=== PATIENT | female | born 1960 | race Caucasian/White ===

== ENCOUNTER 2019-10-31 09:13 | Day surgery (SDC) | payer BC ==
[2019-10-28 10:21] LABS: BASOPHILS # (AUTO) 0.05 x10^3/uL (0-0.1); BASOPHILS % (AUTO) 1 % (0-1); EOSINOPHILS # (AUTO) 0.35 x10^3/uL (0-0.4); EOSINOPHILS % (AUTO) 4 % (1-7); LYMPHOCYTES # (AUTO) 2.27 x10^3/uL (1-3.4); LYMPHOCYTES % (AUTO) 25 % (22-44); MD NO; MEAN CORPUSCULAR HEMOGLOBIN 29.2 pg (27.0-34.8); MEAN CORPUSCULAR HGB CONC 33.5 g/dL (32.4-35.8); MEAN CORPUSCULAR VOLUME 87.1 fL (80-100); MEAN PLATELET VOLUME 9.1 fL (7.4-10.4); MONOCYTES # (AUTO) 0.71 x10^3/uL (0.2-0.8); MONOCYTES % (AUTO) 8 % (2-9); NEUTROPHILS # (AUTO) 5.74 x10^3/uL (1.8-6.8); NEUTROPHILS % (AUTO) 63 % (42-75); PLATELET COUNT 321 x10^3/uL (130-400); RED BLOOD COUNT 4.98 x10^6/uL (3.82-5.3); RED CELL DISTRIBUTION WIDTH 14.3 % (9.6-15.2)
[2019-10-28 10:29] LABS: INTERNATIONAL NORMALIZED RATIO 0.9 (0.93-1.1); PROTHROMBIN TIME 9.5 Seconds (9.6-11.5)
[2019-10-28 10:30] LABS: MICROSCOPIC AUTO
[2019-10-28 10:30] LABS: ALANINE AMINOTRANSFERASE 46 U/L (12-78); ALBUMIN 3.4 g/dL (3.4-5.0); ANION GAP 3 mmol/L (5-15); CALCIUM 8.6 mg/dL (8.5-10.1); CHLORIDE 110 mmol/L (98-107); CREATININE 0.85 mg/dL (0.55-1.02)
[2019-10-28 10:33] LABS: ALKALINE PHOSPHATASE 55 U/L (45-117); BILIRUBIN,TOTAL 0.2 mg/dL (0.2-1.0); TOTAL PROTEIN 7.1 g/dL (6.4-8.2)
[~2019-10-31] VITALS: Ht 157.5 cm; Wt 97.1 kg
[~2019-10-31 09:13] MED LIST: ALBU2.5V INH; ATOR40TA78 PO; BUPIVACAINE/PF 0.25% ONE; CETI10CA PO; CYAN1TAB29 PO; CYCL-259 PO; FAMO-79 PO; FLUT1BLS INH; IPRA4AER INH; METF500T27 PO; MULT-658 PO; MULT-94 PO; MV-M1TAB16 PO; lorazepam PO; magnesium oxide PO
[2019-10-31] MEDS ORDERED: GABAPENTIN 300 MG CAPSULE PO STA (09:43)
[2019-10-31] MEDS ORDERED: ACETAMINOPHEN 500 MG TABLET PO STA (09:43)
[2019-10-31 09:46] VITALS: BP 144/88
[2019-10-31] MEDS ORDERED: CEFOTETAN PMX 2GM/50ML 50 ML IV ONE (10:00)
[2019-10-31] MEDS ORDERED: LIDOCAINE-MPF 1%, 2ML INFIL ONE (10:00)
[2019-10-31] MEDS ORDERED: SCOPOLAMINE 1MG PATCH TD STA (10:10)
[2019-10-31] MEDS: LACTATED RINGERS 1,000 ML IV SCH ×2 (10:17→17:35)
[2019-10-31 11:28] LABS: MICROSCOPIC NOT IND
[2019-10-31] MEDS ORDERED: FENTANYL PF 250 MCG/5ML ONE (14:57)
[2019-10-31] MEDS ORDERED: MIDAZOLAM 1 MG/ML, 2ML ONE (14:57)
[2019-10-31] MEDS ORDERED: ROCURONIUM 10MG/ML,5ML ONE (14:58)
[2019-10-31] MEDS ORDERED: PROPOFOL 10 MG/ML, 20ML ONE (14:58)
[2019-10-31] MEDS ORDERED: ONDANSETRON 2MG/ML, 2ML ONE (14:58)
[2019-10-31] MEDS ORDERED: GLYCOPYRROLATE 0.2MG/1ML, 5ML ONE (14:58)
[2019-10-31] MEDS ORDERED: DEXAMETHASONE 4 MG/ML, 1ML ONE (14:58)
[2019-10-31] MEDS ORDERED: NEOSTIGMINE 1 MG/ML, 10ML ONE (14:58)
[2019-10-31] MEDS ORDERED: SUCCINYLCHOLINE 20 MG/ML, 10ML ONE (21:03)
[2019-10-31] MEDS ORDERED: INDOCYANINE GREEN 25 MG VIAL ONE (21:31)
[2019-10-31] MEDS ORDERED: METOPROLOL 1 MG/ML, 5ML ONE (21:36)
[2019-10-31] MEDS ORDERED: CEFOTETAN PMX 1GM/50ML 50 ML ONE ×2 (21:50)
[2019-10-31] MEDS ORDERED: EPINEPHRINE 1 MG/ML, 1ML INFIL ONE (22:20)
[2019-10-31] MEDS ORDERED: ALBUTEROL HFA 90 MCG/SPRAY ONE (22:24)
[2019-10-31] MEDS ORDERED: LACTATED RINGERS 1,000 ML IV SCH (23:13)
[2019-10-31] MEDS ORDERED: KETOROLAC 30 MG/1 ML IVPush PRN (23:30)
[2019-10-31] MEDS ORDERED: ONDANSETRON 2MG/ML, 2ML IVPush PRN (23:30)
[2019-10-31] MEDS ORDERED: morphine SULFATE 10 MG/ML, 1ML IVPush PRN (23:30)
[2019-10-31] MEDS ORDERED: OXYcodone/APAP 5/325MG TABLET PO PRN (23:30)
[2019-10-31] MEDS ORDERED: FENTANYL PF 100 MCG/2ML ONE (23:45)
[2019-11-01] MEDS ORDERED: PROMETHAZINE 25 MG/ML, 1ML IV PRN
[2019-11-01] MEDS ORDERED: HYDROmorphone 2 MG/ML, 1ML IVPush PRN
[2019-11-01] MEDS ORDERED: OXYcodone 5 MG/5 ML ORAL.SOL UDC PO PRN
[2019-11-01] MEDS ORDERED: MEPERIDINE/PF 25MG/ML,1ML IVPush PRN
[2019-11-01] MEDS ORDERED: DIAZEPAM 5 MG/ML, 2ML IVPush PRN
[2019-11-01] MEDS ORDERED: FENTANYL PF 100 MCG/2ML IV PRN
[2019-11-01] MEDS ORDERED: ALBUTEROL/IPRATROPIUM 2.5MG/0.5MG, 3 ML NPPB PRN
[2019-11-01] MEDS ORDERED: LABETALOL 5MG/ML, 20ML IV PRN
[2019-11-01] MEDS ORDERED: hydrALAzine 20 MG/ML, 1ML IV PRN
[2019-11-01] MEDS ORDERED: DIPHENHYDRAMINE 50 MG/ML, 1ML IVPush PRN
[2019-11-01] MEDS ORDERED: LABETALOL 5MG/ML, 20ML ONE (00:12)
[2019-11-01] MEDS: LACTATED RINGERS 1,000 ML IV SCH (01:59)
[2019-11-01 02:03] VITALS: BP 152/86
[2019-11-01 06:30] VITALS: BP 169/88
== END 2019-11-01 11:02 | disposition home or self-care (01) ==
LOC: OUT 09:13 → 4NE 11-01 00:55 → OUT 11-01 11:02
PROVIDERS: ATTEND Obstetrics & Gynecology
DX: C54.1 Malignant neoplasm of endometrium (principal); N87.9 Dysplasia of cervix uteri, unspecified; N80.0 Endometriosis of uterus; D25.9 Leiomyoma of uterus, unspecified; N88.8 Other specified noninflammatory disorders of cervix uteri; E11.9 Type 2 diabetes mellitus without complications; E78.5 Hyperlipidemia, unspecified; F41.9 Anxiety disorder, unspecified; E66.9 Obesity, unspecified; Z68.41 Body mass index [BMI] 40.0-44.9, adult; Z79.84 Long term (current) use of oral hypoglycemic drugs; Z79.899 Other long term (current) drug therapy; Z87.891 Personal history of nicotine dependence; Z88.6 Allergy status to analgesic agent; Z90.49 Acquired absence of other specified parts of digestive tract; Z98.890 Other specified postprocedural states
CPT/HCPCS: 36415; 38570; 58552; 71046; 74018; 80053; 81001; 81003; 82962; 85025; 85610; 85730; 86304; 86850; 86900; 86923; 87086; 88112; 88305; 88307; 88331; 88333; 93005; J0171; J0330; J1100; J2250; J2405; J2704; J2710; J3010; J3490; J7120; S2900; G0378